=== PATIENT | female | born 1985 | race Two or more races ===

== ENCOUNTER 2020-07-02 09:39 | Emergency (ER) | payer MEDICAID ==
[~2020-07-02] VITALS: Ht 152.4 cm; Wt 58.1 kg
--- NOTE | 2020-07-02 09:39 | NUR ---
PT BIB SELF C/O DIZZNESS SIMCE LAST NIGHT. PT IS AAOX4, NOT IN RESPIRATORY DISTRESS, V/S STABLE, KEPT RESTED AND COMFORTABLE. WILL CONTINUE TO MONITOR.
--- NOTE | 2020-07-02 09:48 | NUR ---
URINE SPECIMEN COLLECTED AND SENT TO LAB.
--- NOTE | 2020-07-02 09:57 | NUR ---
SEEN AND EXAMINED BY .
[2020-07-02] MEDS ORDERED: MECLIZINE HCL 12.5 MG TABLET PO ONE (10:00)
[2020-07-02] MEDS ORDERED: ONDANSETRON HCL/PF 4 MG/2 ML VIAL IVP ONE (10:00)
[2020-07-02] MEDS ORDERED: IV NS 0.9% 1,000 ML BAG IV ONE (10:00)
--- NOTE | 2020-07-02 10:05 | NUR ---
IV LINE ESTABLISHED BLOOD DRAWN AND SENT TO LAB.
[2020-07-02] MEDS ORDERED: MECLIZINE HCL 25 MG TABLET ONE (10:10)
[2020-07-02] MEDS ORDERED: ONDANSETRON HCL/PF 4 MG/2 ML VIAL ONE (10:10)
[2020-07-02 10:17] LABS: BASOPHILS % (AUTO) 0.1 % (0.0-2.0); EOSINOPHILS % (AUTO) 0.6 % (0.0-6.0); HEMATOCRIT 37 % (33-45); HEMOGLOBIN 12.4 g/dL (11.5-14.8); LYMPHOCYTES # (AUTO) 1.3 /CMM (0.8-4.8); LYMPHOCYTES % (AUTO) 14.4 % (20.0-44.0); MEAN CORPUSCULAR HGB CONC 34 g/dl (31.0-36.0); MEAN CORPUSCULAR VOLUME 91 fL (82-100); MONOCYTES # (AUTO) 0.5 /CMM (0.1-1.30); NEUTROPHILS # (AUTO) 7.5 /CMM (1.8-8.9); NEUTROPHILS % (AUTO) 79.9 % (43.0-81.0); PLATELET COUNT (AUTO) 244 /CMM (150-450); RED BLOOD CELL COUNT(AUTO) 4.09 MIL/uL (4.0-5.2); WHITE BLOOD COUNT (AUTO) 9.4 K/uL (4.3-11.0)
[2020-07-02 10:19] LABS: CALCIUM, SERUM 8.3 mg/dL (8.5-10.1); CREATININE 0.6 mg/dL (0.6-1.3); POTASSIUM 3.5 mmol/L (3.5-5.1)
--- NOTE | 2020-07-02 10:47 | NUR ---
PT IS WHEELED TO CT SCAN VIA [facility].
[2020-07-02] MEDS ORDERED: LORAZEPAM INJ 2 MG/ML VIAL IV ONE (11:00)
[2020-07-02] MEDS ORDERED: LORAZEPAM INJ 2 MG/ML VIAL ONE (11:07)
[2020-07-02 12:08] VITALS: BP 128/80
--- NOTE | 2020-07-02 12:08 | NUR ---
Patient discharged to home in stable condition. Written and verbal after care instructions given. Patient verbalizes understanding of instruction. IV removed. Catheter intact and site benign. Pressure and 4x4 applied to site. No bleeding noted.
== END 2020-07-02 12:09 | disposition home or self-care (01) ==
LOC: ER 09:44
DX: R42 Dizziness and giddiness (principal); R11.2 Nausea with vomiting, unspecified
CPT/HCPCS: 36415; 70450; 80048; 84703; 85025; 96361; 96374; 96375; 99284; J2060; J2405; J7030; J8597

== ENCOUNTER 2021-07-23 19:29 | Emergency (ER) | payer MEDICAID ==
[~2021-07-23] VITALS: Ht 157.5 cm; Wt 61.2 kg
--- NOTE | 2021-07-23 20:00 | NUR ---
BIBS FOR C/O L SIDED CP, OCCASIONAL H/A AND NAUSEA X 1WK. C/P DESCRIBED PRESSURE RADIATES TO BACK. BREATHING IS EVEN AND UNLABORED AND SKIN SIGNS WNL. PATIENT CHANGED INTO A GOWN AND PLACED ON MONITOR. ALL VITALS STABLE. MD WAS AT THE BEDSIDE FOR EVAL.
--- NOTE | 2021-07-23 20:17 | NUR ---
BLOOD DRAWN SENT TO LAB.
[2021-07-23 20:23] LABS: BASOPHILS # (AUTO) 0.1 K/uL (0.0-0.2); BASOPHILS % (AUTO) 0.7 % (0.0-2.0); EOSINOPHILS % (AUTO) 0.6 % (0.0-6.0); HEMATOCRIT 39 % (33-45); HEMOGLOBIN 12.8 g/dL (11.5-14.8); LYMPHOCYTES # (AUTO) 2.3 K/uL (0.8-4.8); LYMPHOCYTES % (AUTO) 22.2 % (20.0-44.0); MEAN CORPUSCULAR HGB CONC 33 g/dl (31.0-36.0); MEAN CORPUSCULAR VOLUME 89 fL (82-100); MONOCYTES # (AUTO) 0.9 K/uL (0.1-1.30); MONOCYTES % (AUTO) 8.6 % (2.0-12.0); NEUTROPHILS # (AUTO) 7.1 K/uL (1.8-8.9); NEUTROPHILS % (AUTO) 67.9 % (43.0-81.0); PLATELET COUNT (AUTO) 276 K/uL (150-450); RED BLOOD CELL COUNT(AUTO) 4.31 MIL/uL (4.0-5.2); WHITE BLOOD COUNT (AUTO) 10.4 K/uL (4.3-11.0)
[2021-07-23 20:40] LABS: CARBON DIOXIDE 27 mmol/L (21-32); CHLORIDE 105 mmol/L (98-107); CREATININE 1.1 mg/dL (0.6-1.3); GLUCOSE 82 mg/dL (74-106); POTASSIUM 3.5 mmol/L (3.5-5.1); SODIUM SERUM 140 mmol/L (136-145); UREA NITROGEN, BLOOD 17 mg/dL (7-18)
[2021-07-23 20:41] LABS: CALCIUM, SERUM 8.5 mg/dL (8.5-10.1)
[2021-07-24] MEDS ORDERED: LORAZEPAM 1 MG TABLET PO ONE
[2021-07-24] MEDS ORDERED: LORAZEPAM 0.5 MG TABLET ONE (00:02)
--- NOTE | 2021-07-24 00:09 | NUR ---
Patient discharged to home in stable condition. Written and verbal after care instructions given. Patient verbalizes understanding of instruction.
[2021-07-24 00:21] VITALS: BP 117/76
== END 2021-07-24 00:09 | disposition home or self-care (01) ==
LOC: ER 19:35
DX: R07.89 Other chest pain (principal); R51.9 Headache, unspecified; R11.0 Nausea
CPT/HCPCS: 36415; 71045-TC; 80048-TC; 84484-TC; 84703-TC; 85025-TC

== ENCOUNTER 2024-10-24 16:30 | Emergency (ER) | payer MEDICAID, OTHER ==
[~2024-10-24] VITALS: Ht 157.5 cm; Wt 71.2 kg
[2024-10-24 17:00] VITALS: BP 101/61; TEMP 98
[2024-10-24] MEDS ORDERED: IBUP-1957 PO (17:10)
[2024-10-24] MEDS ORDERED: FLUT16SP16 BNOSTRILS (17:10)
[2024-10-24] MEDS ORDERED: AMOX-430 PO (17:10)
[2024-10-24 17:22] VITALS: O2SAT 100
== END 2024-10-24 17:22 | disposition home or self-care (01) ==
LOC: ER 16:33
DX: H66.93 Otitis media, unspecified, bilateral (principal); J32.9 Chronic sinusitis, unspecified; Z79.1 Long term (current) use of non-steroidal anti-inflammatories (NSAID)